=== PATIENT | female | born 1970 | race Caucasian/White ===

== ENCOUNTER 2017-01-10 13:52 | Emergency (ER) | payer OTHER | END 2017-01-10 16:25 | disposition home or self-care (01) | LOC: ER1 13:52 | DX: Z04.1 Encounter for examination and observation following transport accident (principal); I10 Essential (primary) hypertension; E78.5 Hyperlipidemia, unspecified; E11.9 Type 2 diabetes mellitus without complications | CPT/HCPCS: 99283 ==

== ENCOUNTER → 2017-03-14 | Outpatient (CLI) | payer OTHER | LOC: RAD 10:06 | DX: S79.911S Unspecified injury of right hip, sequela (principal) | CPT/HCPCS: 73502 ==

== ENCOUNTER → 2021-12-16 | Outpatient (CLI) | payer OTHER | LOC: KOH-I 11:50 | DX: M25.551 Pain in right hip (principal) | CPT/HCPCS: 73502 ==

== ENCOUNTER → 2022-03-13 | Outpatient (CLI) | payer OTHER | LOC: EXRD 10:26 | DX: R05.9 Cough, unspecified (principal); R09.89 Other specified symptoms and signs involving the circulatory and respiratory systems; M54.50 Low back pain, unspecified; I65.23 Occlusion and stenosis of bilateral carotid arteries; M50.31 Other cervical disc degeneration, high cervical region; M47.814 Spondylosis without myelopathy or radiculopathy, thoracic region; M25.78 Osteophyte, vertebrae; M41.9 Scoliosis, unspecified; M51.36 Other intervertebral disc degeneration, lumbar region; M47.816 Spondylosis without myelopathy or radiculopathy, lumbar region | CPT/HCPCS: 71046; 72040; 72070; 72100; 93880 ==

== ENCOUNTER 2022-06-02 14:35 | Emergency (ER) | payer SELFPAY ==
[2022-06-02] MEDS ORDERED: HYDROCODON-ACE1 EAC4 PO ×2 (16:26→16:28)
== END 2022-06-02 17:00 | disposition home or self-care (01) ==
LOC: ER1 14:35
DX: S82.61XA Displaced fracture of lateral malleolus of right fibula, initial encounter for closed fracture (principal); S82.401A Unspecified fracture of shaft of right fibula, initial encounter for closed fracture; S50.312A Abrasion of left elbow, initial encounter; E11.9 Type 2 diabetes mellitus without complications; W01.0XXA Fall on same level from slipping, tripping and stumbling without subsequent striking against object, initial encounter; Y92.512 Supermarket, store or market as the place of occurrence of the external cause; Y92.89 Other specified places as the place of occurrence of the external cause; Y99.0 Civilian activity done for income or pay
CPT/HCPCS: 29515; 73080; 73564; 73600; 73620; 99283

== ENCOUNTER → 2022-06-26 | Outpatient (CLI) | payer OTHER ==
[~2022-06-26] MED LIST: HYDROCODON-ACE1 EAC4 PO
== END ==
LOC: KOH-I 10:38
DX: S82.831D Other fracture of upper and lower end of right fibula, subsequent encounter for closed fracture with routine healing (principal)
CPT/HCPCS: 73610